=== PATIENT | male | born 1950 | race Caucasian/White ===

== ENCOUNTER 2020-08-17 02:27 | Inpatient (IN) | payer MEDICARE ==
[~2020-08-17] VITALS: Ht 188 cm; Wt 96.2 kg
[~2020-08-17 02:27] MED LIST: ASPIRIN EC81 MG PO; IBUPROFEN800 MG PO; LISINOPRIL5 MG PO; NORCO 7.5-3251 EACH PO; OMNICEF 300 MG300 MG PO; PROAIR DIGIHAL90 MCG INH; XARELTO15 MG PO; XARELTO20 MG PO; ZITHROMAX250 MG PO; ZOFRAN 4 MG TAB4 MG PO
[2020-08-17 03:16] LABS: HEMOGLOBIN 14.7 gm/dl (14.0-17.5); RED BLOOD COUNT 4.78 M/UL (4.20-5.50); WHITE BLOOD COUNT 8.5 K/UL (4.5-11.0)
[2020-08-17 03:32] LABS: BUN/CREATININE RATIO 30 (0-10)
[2020-08-18] MEDS ORDERED: LOPRESSOR 25 MG25 MG PO (14:22)
[2020-08-18] MEDS ORDERED: DIGOXIN250 MCG PO (14:22)
[2020-08-18] MEDS ORDERED: ELIQUIS 5 MG TAB5 MG PO (14:22)
== END 2020-08-18 15:05 | disposition home or self-care (01) | DRG 308 ==
LOC: ER1 02:27 → ZEROF 04:10 → PROG CARE 17:12
PROVIDERS: Family Medicine; ADMIT Internal Medicine
DX: I48.91 Unspecified atrial fibrillation (principal); I50.23 Acute on chronic systolic (congestive) heart failure; I11.0 Hypertensive heart disease with heart failure; I42.9 Cardiomyopathy, unspecified; D69.6 Thrombocytopenia, unspecified; I27.20 Pulmonary hypertension, unspecified; Z53.29 Procedure and treatment not carried out because of patient's decision for other reasons; Z20.828 Contact with and (suspected) exposure to other viral communicable diseases; Z89.221 Acquired absence of right upper limb above elbow; Z85.038 Personal history of other malignant neoplasm of large intestine; Z86.718 Personal history of other venous thrombosis and embolism; Z82.49 Family history of ischemic heart disease and other diseases of the circulatory system; Z87.891 Personal history of nicotine dependence
CPT/HCPCS: 71045; 80053; 82550; 82553; 83874; 83880; 84439; 84443; 84484; 85025; 85610; 93005; 96365; 96366; 96375; 99285; J1160; U0002

== ENCOUNTER → 2022-01-01 | Outpatient (CLI) | payer MEDICARE ==
[~2022-01-01] MED LIST changes: +DIGOXIN250 MCG PO; +ELIQUIS 5 MG TAB5 MG PO; +LOPRESSOR 25 MG25 MG PO
[2022-01-01 11:00] LABS: HEMOGLOBIN 16.1 gm/dl (14.0-17.5); RED BLOOD COUNT 5.17 M/UL (4.20-5.50); WHITE BLOOD COUNT 8.3 K/UL (4.5-11.0)
[2022-01-01 11:32] LABS: BUN/CREATININE RATIO 26 (0-10)
== END ==
LOC: LAB 10:38
PROVIDERS: Physician Assistant
DX: I48.91 Unspecified atrial fibrillation (principal); I49.3 Ventricular premature depolarization
CPT/HCPCS: 36415; 80053; 80162; 83735; 84436; 84443; 85025